=== PATIENT | male | born 1945 | race African-American/Black ===

== ENCOUNTER 2017-03-02 09:13 | Inpatient (IN) | payer OTHER ==
[2017-03-02 10:44] LABS: #Lymphocytes 1.2 thou/uL (1.20-3.40); #Monocytes 0.5 thou/uL (0.11-0.59); #Neutrophils 12.4 thou/uL (1.40-6.50); %Basophils 0.1 % (0.0-1.0); %Eosinophils 0.2 % (0.0-10.0); %Lymphocytes 8.6 % (21.0-51.0); %Monocytes 3.7 % (0.0-10.0); Hematocrit 49.4 % (42.0-52.0); Red Blood Cell (RBC) Count 4.98 mill/uL (4.70-6.10); White Blood Cell (WBC) Count 14.2 thou/uL (4.8-10.8)
--- NOTE | 2017-03-02 11:01 | CT ---
CT OF THE BRAIN WITHOUT CONTRAST: COMPARISON: None. HISTORY: Found down with facial drooping. Nonverbal. Stroke. TECHNIQUE: Multiple contiguous axial images were obtained in a CT of the brain without contrast. FINDINGS: There are scattered hypodensities in the subcortical and periventricular white matter, likely second avery to small-vessel ischemic disease. No large confluent infarction is seen. There is no evidence of hydrocephalus, intracranial hemorrhage, or extraaxial fluid collection. The calvarium and overlying soft tissues are unremarkable. The visualized paranasal sinuses and mas toid air cells are well aerated. IMPRESSION: No evidence of acute intracranial abnormality. POS: [facility]
[2017-03-02 11:07] LABS: ALT (SGPT) 46 U/L (8-55); AST (SGOT) 32 U/L (5-34); Alkaline Phosphatase 243 U/L (40-150); Anion Gap 16 mmol/L (10-20); BUN (Urea Nitrogen) 19 mg/dL (8.4-25.7); Bilirubin, Total 0.6 mg/dL (0.2-1.2); Calc. Creatinine Clearance 0 mL/min (70-130); Carbon Dioxide 22 mmol/L (23-31); Chloride 104 mmol/L (98-107); Estimated GFR-MDRD 85; Globulin 4.1 g/dL (2.4-3.5); Protein, Total 8.4 g/dL (5.8-8.1)
[2017-03-02 11:26] LABS: Troponin I 0.031 ng/mL (< 0.028)
--- NOTE | 2017-03-02 11:32 | HP ---
PRIMARY CARE PHYSICIAN: Not listed. The patient [place] an [facility] and is a city call patient. CHIEF COMPLAINT: Left-sided weakness and fall. HISTORY OF PRESENT ILLNESS: Mr. Parnell is a 71-year-old gentleman with history of HIV, apparently u nder good control, paranoid schizophrenia, GERD, and hyperlipidemia, who this morning states he was getting up to go to the bathroom in the medical [facility] where he resides at the senior living and felt lighthe aded and passed out. He fell and hit his head and when he came to only knows that he had difficulty moving his left arm and leg. Per reports, he was found down at 0745. The part of the facility that he is in has 6 total inmates. No one believed that he was down for any prolonged period of time prior to being found. On arrival here, he continued to have left-sided weakness and left-sided facial droop. Initial CT s can reportedly was unremarkable. Labs were obtained. We were called for admission for further work up. PAST MEDICAL HISTORY: 1. HIV diagnosed in 1984. He is currently on Prezista, boosted and Truvada. He has been on this r egimen at the present time and only knows that his numbers are \\\\"good.\\\\" 2. Schizophrenia, paranoid type, on Risperdal and amantadine. 3. GERD. 4. Hyperlipidemia. PAST SURGICAL HISTORY: None. He does have an inguinal hernia that has not been repaired. HOME MEDICATIONS: 1. Amantadine 100 mg p.o. b.i.d. 2. Atorvastatin 20 mg p.o. at bedtime. 3. Benadryl 25 mg p.o. b.i.d. 4. Gemfibrozil 600 mg p.o. b.i.d. 5. Norvir 100 mg daily. 6. Prezista 800 mg daily. 7. Ranitidine 300 mg p.o. daily. 8. Viread 300 mg daily. 9. Pyridoxine 50 mg daily. 10. Risperdal 1 mg p.o. at bedtime. 11. Zoloft 50 mg p.o. at bedtime. ALLERGIES: NKDA. FAMILY HISTORY: Negative for clotting bleeding disorder, no immune dysfunction, no premature gavin ry disease, no diabetes. SOCIAL HISTORY: Negative for habits x3. He was diagnosed with HIV in 1984. He states he was incar cerated then. He is not sure how long he has been in at this point. REVIEW OF SYSTEMS: A 10-point review of systems was performed and was negative for all other system s except as stated per HPI. PHYSICAL EXAMINATION: VITAL SIGNS: Temperature is 98.5, current pulse 96, blood pressure 123/84, respiratory rate 18, sat ting 100% on room air. GENERAL: He is awake. He is alert. He is oriented x3, appears to be in no acute distress. HEENT: Normocephalic, atraumatic. Pupils equal, round, reactive to light bilaterally. ENT: Mucous membranes moist. There are no visible lesions, no thrush. Does have left-sided facial droop. NECK: Supple, without lymphadenopathy, JVD, or thyromegaly. RESPIRATORY: Lungs are clear to auscultation bilaterally. He has good air movement and symmetrical chest excursion. He has no wheezes, no rales, no rhonchi. CARDIOVASCULAR: Normal S1, S2. No S3, S4. Slightly tachycardic with a regular rhythm. He has no murmurs. ABDOMEN: Soft, it is nontender, nondistended, no masses, no organomegaly. EXTREMITIES: No cyanosis, no clubbing, no edema. Muscle mass is adequate. MUSCULOSKELETAL: Normal to inspection. There are no inflamed or arthritic joints. He has no palpa ble joint effusions. SKIN: Warm, moist and well perfused. He has no rashes, no lesions. NEUROLOGIC: He does have left-sided facial droop. Cranial nerves II- and VIII-XII appear to be g rossly intact. He has what looks to be a peripheral seventh palsy. He has got left-sided facial dr oop, but his eyelid and his forehead appear to be spared. He has got 5/5 strength in his right leg and right arm extensor and flexor. He has 3/5 strength in his left arm and 3-4/5 strength in his le ft lower extremity in both his hip flexors and extensors and lower leg flexors and extensors. LABORATORY DATA: CBC showed a white count elevated at 14.2, hemoglobin 17.3, hematocrit of 49.4, pl atelet count is 257,000. He has 87% granulocytosis. CMP is currently pending. A brain CT earlier this morning that is reportedly negative. I cannot pull up images and no dictate d report at this time. ASSESSMENT AND PLAN: 1. Probable right MCA distribution ischemic stroke. We will get MRI/MRA. We will have carotid ult rasound and echocardiogram. Continue the patient on his statin, continue aspirin daily. We will ge t physical therapy, occupational therapy and speech therapy evaluations and neurology consultation a s well. 2. Human immunodeficiency virus positive, status unknown. We will check CD4 count and viral load. We will continue on his boosted Prezista and Truvada regimen as it is definitely an acceptable iain men. 3. Schizophrenia, on amantadine and risperidone. We will continue. 4. Reflux. We will continue him on gastrointestinal prophylaxis. We will use Pepcid here. 5. Hyperlipidemia, on atorvastatin. We will increase to 40 mg p.o. at bedtime. I will check a fas ting lipid profile in the morning. The patient will be placed in full admission status upon the stroke unit. Follow up on results and recommendations from Neurology.
[2017-03-02] MEDS ORDERED: Aspirin 300 MG Suppository ONE (11:44)
[2017-03-02] MEDS ORDERED: Ondansetron HCl/PF 4 MG/2 ML Vial IVP PRN (12:49)
[2017-03-02 13:25] VITALS: BMI 22.1
[2017-03-02] MEDS: Gemfibrozil 600 MG TAB PO SCH (16:34)
[2017-03-02] MEDS ORDERED: FLU VACC TS2017-18 (>65YR) 0.5 ML SYRINGE IM ONE (21:00)
[2017-03-02] MEDS: Famotidine/PF 20 mg/2ml Vial SLOW IVP SCH (21:43)
[2017-03-02] MEDS: Atorvastatin Calcium 40 MG TAB PO SCH (21:43)
[2017-03-02] MEDS: Amantadine HCl 100 mg Capsule PO SCH (21:44)
[2017-03-02] MEDS: risperiDONE 1 MG TAB PO SCH (21:44)
[2017-03-03 05:19] LABS: #Basophils 0.1 thou/uL (0.0-0.2); #Eosinphils 0.1 thou/uL (0.0-0.7); #Monocytes 0.7 thou/uL (0.11-0.59); #Neutrophils 7.5 thou/uL (1.40-6.50); %Basophils 0.5 % (0.0-1.0); %Eosinophils 0.7 % (0.0-10.0); %Lymphocytes 19.3 % (21.0-51.0); %Monocytes 6.4 % (0.0-10.0); Hematocrit 45.4 % (42.0-52.0); Mean Platelet Volume 6.2 fL (7.4-10.4); Red Blood Cell (RBC) Count 4.57 mill/uL (4.70-6.10); White Blood Cell (WBC) Count 10.2 thou/uL (4.8-10.8)
[2017-03-03 05:40] LABS: Anion Gap 13 mmol/L (10-20); BUN (Urea Nitrogen) 23 mg/dL (8.4-25.7); Calc. Creatinine Clearance 65 mL/min (70-130); Calcium 9.7 mg/dL (7.8-10.44); Carbon Dioxide 22 mmol/L (23-31); Chloride 106 mmol/L (98-107); Cholesterol 210 mg/dl (< 200 Desired); Estimated GFR-MDRD 87; LDL Cholesterol, Calculated 127 mg/dL
[2017-03-03] MEDS ORDERED: PREZISTA 800 MG PO SCH (09:00)
[2017-03-03] MEDS: Gemfibrozil 600 MG TAB PO SCH ×2 (12:21→17:08)
[2017-03-03] MEDS: Famotidine/PF 20 mg/2ml Vial SLOW IVP SCH ×2 (12:22→21:18)
[2017-03-03] MEDS: Aspirin 325 MG TAB PO SCH (12:22)
[2017-03-03] MEDS: Amantadine HCl 100 mg Capsule PO SCH ×2 (12:22→21:13)
[2017-03-03] MEDS ORDERED: ATAZANAVIR SULFATE 300 MG PO SCH (12:45)
--- NOTE | 2017-03-03 13:46 | MRI ---
MRI BRAIN: HISTORY: Found down with facial drooping. Nonverbal. TECHNIQUE: Multiplanar, multisequence MR images were obtained of the brain without contrast. FINDINGS: There is an area of restricted diffusion in the right basal ganglia measuring 1.6 cm in size. This is associated with high FLAIR signal and represents an acute infarction in the right basal ganglia. There are also scattered areas of restricted diffusion extending into the right parietal and occipi mona lobes consistent with multifocal infarctions in the right SOCK LINER distribution. There is no evidenc e of hydrocephalus, intracranial hemorrhage, or extraaxial fluid collection. There are scattered foci of high T2/FLAIR foci consistent with small-vessel ischemic disease. The c orpus callosum, pituitary, and craniocervical junction are unremarkable. The expected flow voids ar e present. IMPRESSION: Acute right basal ganglia and right SOCK LINER distribution infarction. POS: [facility]
--- NOTE | 2017-03-03 13:49 | MRI ---
MRA OF THE HEAD AND BRAIN WITHOUT CONTRAST: COMPARISON: None. HISTORY: Facial drooping and nonverbal. Possible right MCA distribution infarction. TECHNIQUE: MRA of the brain was performed without contrast using 3KD [id number] imaging. Three-D rotation reformats were performed. FINDINGS: The bilateral intracranial internal carotid arteries are patent. These branches are normal-appearin g anterior and middle cerebral arteries. There is no evidence of aneurysmal dilatation, focal steno sis, or occlusion in the anterior circulation. Both vertebral arteries form a normal-appearing basilar artery. The posterior cerebral arteries and cerebellar arteries are patent. There is no evidence of focal stenosis, occlusion, or aneurysmal d ilatation in the posterior circulation. IMPRESSION: No significant intracranial vascular abnormality. POS: [facility]
--- NOTE | 2017-03-03 13:57 | MRI ---
MRA OF THE NECK WITHOUT AND WITH CONTRAST: COMPARISON: None. HISTORY: Facial drooping with right-sided stroke. TECHNIQUE: An MRA was performed of the neck without and with IV contrast. Three-D rotational reformats were pe rformed. FINDINGS: Both common carotid arteries have a normal origin from the aortic arch. No significant irregularity is seen in the common carotid artery to suggest atherosclerotic disease. There is irregularity dis mona to the carotid bifurcation within the proximal aspect of both external carotid arteries. The in ternal carotid arteries show no irregularity to suggest significant atherosclerotic disease. Both vertebral arteries are normal in appearance and form a normal-appearing basilar artery. IMPRESSION: No significant cervical carotid atherosclerotic disease. POS: [facility]
--- NOTE | 2017-03-03 14:59 | PDOC.PN ---
- Subjective Encounter Start Date: 03/03/17 Encounter Start Time: 12:30 Pt seen and examined. no change neurologically overnight. Left droop and left body weakness persists. Echo and MRI done. MRI results as i type this, wasnt available during rounds. No F/C, no n/V/D/C, no CP or SOB. no seizure activity. Pts on HIV meds, but Darunavir not available, will change to Atazanavir temporarily 10 point ROS performed and neg for all systems except as per HPI - Objective Resuscitation Status: FULL MAR Reviewed: Yes Vital Signs & Weight: Vital Signs (12 hours) Temp Pulse Resp BP Pulse Ox 03/03/17 12:30 98.5 F 115 H 18 154/91 H 98 03/03/17 08:00 98.0 F 96 18 98 03/03/17 07:05 98.0 F 96 18 130/71 95 03/03/17 04:29 98.5 F 110 H 16 132/74 97 03/03/17 03:03 97 Weight Weight 149 lb 14.629 oz I&O: 03/02/17 03/03/17 03/04/17 06:59 06:59 06:59 Intake Total 613 Output Total 450 Balance 163 Result Diagrams: 03/03/17 05:02 03/03/17 05:02 Radiology Reviewed by me: Yes EKG Reviewed by me: Yes Phys Exam - Physical Examination Constitutional: NAD HEENT: PERRLA, moist MMs, sclera anicteric, oral pharynx no lesions Neck: no nodes, no JVD, supple, full ROM Respiratory: no wheezing, no rales, no rhonchi, clear to auscultation bilateral Cardiovascular: RRR, no significant murmur, no rub Gastrointestinal: soft, non-tender, no distention, positive bowel sounds Musculoskeletal: no edema, pulses present Neurological: normal sensation, moves all 4 limbs left facial droop stable. 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 continue lipitor at higher dose. contiue ASA full dose. PT/OT/ST nehemias ontinue. await neurology recommendations. Will change darunavit to BRAXTON for now. look into rehab if posible. pt may need to get at the nursing home. will discuss in AM with case management
--- NOTE | 2017-03-03 17:29 | CON ---
DATE OF CONSULTATION: 03/03/2017 CONSULTING PHYSICIAN: Hospitalist Service. IMPRESSION: 1. Lacunar infarction with left hemiparesis of a moderate degree. 2. Mild hypertension. 3. Diabetes. 4. Hyperlipidemia. PLAN: 1. Aspirin. 2. Statin titrated to address cholesterol issues. 3. Investigate rehab options. Mr. Parnell is a 71-year-old man, who is an inmate in the [facility] unit. He presented with acute onset of left-sided weakness. His MRI of the brain reveals a right basal ganglia infarct. MRA of the ca rotid vessels did not show any stenosis. He has no past history of stroke. He was not taking any m edications for any medical problems prior to this admission. He denies a cardiac history as well. PAST MEDICAL HISTORY: Otherwise unknown. ALLERGIES: None reported. SOCIAL HISTORY: No tobacco or illicit drug use. FAMILY HISTORY: Noncontributory. REVIEW OF SYSTEMS: No complaint of headache, nausea, vomiting, vertigo, double vision, or difficult y swallowing. PHYSICAL EXAMINATION: GENERAL: He is a reasonably well-nourished, elderly gentleman, lying in bed, in no distress. VITAL SIGNS: Stable. He is afebrile. HEENT: Pupils equal and reactive. Conjunctivae clear. Oropharynx clear. NECK: No lymphadenopathy noted. EXTREMITIES: No cyanosis noted. NEUROLOGIC EXAM: He is alert and cooperative. His speech is fluent and clear. There is a left fac ial flattening present. Palate elevated to the midline. Motor exam shows some 3+/5 strength in the left arm. Same is fairly true for the left leg as well. Sensation was subjectively intact bilater ally. Gait was not testable. No abnormal movements were seen. IMAGING STUDIES: Reviewed. SUMMARY: This is a 71-year-old man with what appears to be some mild hypertension, hyperlipidemia, and human immunodeficiency virus, who presented with lacunar infarction. He will need to be started on aspirin and a statin to address these 2 factors. He could be transferred to a rehab unit if we can find one available under these circumstances.
[2017-03-03] MEDS: risperiDONE 1 MG TAB PO SCH (21:13)
[2017-03-03] MEDS: Atorvastatin Calcium 40 MG TAB PO SCH (21:13)
[2017-03-04 04:37] LABS: #Lymphocytes 1.2 thou/uL (1.20-3.40); #Monocytes 0.6 thou/uL (0.11-0.59); #Neutrophils 10.9 thou/uL (1.40-6.50); %Basophils 0.3 % (0.0-1.0); %Eosinophils 0.1 % (0.0-10.0); %Lymphocytes 9.4 % (21.0-51.0); %Monocytes 4.7 % (0.0-10.0); Hematocrit 50.7 % (42.0-52.0); Red Blood Cell (RBC) Count 5.08 mill/uL (4.70-6.10); White Blood Cell (WBC) Count 12.7 thou/uL (4.8-10.8)
[2017-03-04 04:38] LABS: Hemoglobin A1c 6.9 % (4.0-6.0)
[2017-03-04 04:57] LABS: Anion Gap 17 mmol/L (10-20); BUN (Urea Nitrogen) 28 mg/dL (8.4-25.7); Calc. Creatinine Clearance 69 mL/min (70-130); Calcium 9.9 mg/dL (7.8-10.44); Carbon Dioxide 19 mmol/L (23-31); Chloride 106 mmol/L (98-107); Estimated GFR-MDRD 87
[2017-03-04] MEDS ORDERED: PREZISTA 800 MG PO SCH (09:00)
[2017-03-04] MEDS: Aspirin 325 MG TAB PO SCH (09:52)
[2017-03-04] MEDS: Gemfibrozil 600 MG TAB PO SCH ×2 (09:52→16:11)
[2017-03-04] MEDS: ATAZANAVIR SULFATE 300 MG PO SCH (09:52)
[2017-03-04] MEDS: Amantadine HCl 100 mg Capsule PO SCH ×2 (09:52→20:23)
[2017-03-04] MEDS: Famotidine/PF 20 mg/2ml Vial SLOW IVP SCH ×2 (09:53→20:23)
--- NOTE | 2017-03-04 14:16 | PDOC.PN ---
- Subjective Encounter Start Date: 03/04/17 Encounter Start Time: 09:55 -: non-verbal pt doing abut the same. nodding and shaking appropriately, but not talking today. developed sinus tach sometime yesterday AM andhas persistently been in 110-120s denies pain, no CP, no leg pain. SCDs in place. one dip on O2, but has been on 95-96% on RA most of the last 48 hours. no F/c, no N/V/D/C. Pt sleeping at the time of this note soundly 10 point ROS performed and neg for all systems except as above - Objective Resuscitation Status: FULL MAR Reviewed: Yes Vital Signs & Weight: Vital Signs (12 hours) Temp Pulse Pulse Pulse Resp BP BP 03/04/17 11:59 98.0 F 122 H 22 H 03/04/17 09:16 125 H 112 H 167/94 H 131/90 03/04/17 08:30 117 H 03/04/17 08:00 98.4 F 124 H 20 03/04/17 05:04 03/04/17 03:04 98.4 F 118 H 20 BP Pulse Ox 03/04/17 11:59 138/92 H 95 03/04/17 09:16 03/04/17 08:30 03/04/17 08:00 134/86 96 03/04/17 05:04 95 03/04/17 03:04 137/92 H 95 Weight Weight 159 lb 6.4 oz I&O: 03/03/17 03/04/17 03/05/17 06:59 06:59 06:59 Intake Total 613 555 750 Output Total 450 400 Balance 163 155 750 Result Diagrams: 03/04/17 04:17 03/04/17 04:17 Radiology Reviewed by me: Yes EKG Reviewed by me: Yes Phys Exam - Physical Examination Constitutional: NAD HEENT: PERRLA, moist MMs, sclera anicteric, oral pharynx no lesions Neck: no nodes, no JVD, supple, full ROM Respiratory: no wheezing, no rales, no rhonchi, clear to auscultation bilateral Cardiovascular: no significant murmur, no rub regular, tachy Gastrointestinal: soft, non-tender, no distention, positive bowel sounds Musculoskeletal: no edema, pulses present left 3/5 strength, right 4.5 UEand LE. 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 Code(s): I63.531 - CEREB INFRC D/T UNSP OCCLS OR STENOS OF RIGHT POST CEREB ART Status: Acute (3) HIV (human immunodeficiency virus infection) Status: Chronic Comment: On boosted Atazanavir (in palce of boosted Prezista) plus truvada (4) Paranoid schizophrenia Code(s): F20.0 - PARANOID SCHIZOPHRENIA Status: Chronic Comment: on HS risperdal per home regimen (5) HLD (hyperlipidemia) Code(s): E78.5 - HYPERLIPIDEMIA, UNSPECIFIED Status: Acute Qualifiers: Hyperlipidemia type: unspecified Qualified Code(s): E78.5 - Hyperlipidemia , unspecified - Plan cont current plan of care, PT/OT, medical social worker * .
[2017-03-04] MEDS ORDERED: Iopamidol 370 76% 100 ML VIAL ONE (15:45)
--- NOTE | 2017-03-04 19:15 | CT ---
CT PULMONARY ANGIOGRAM WITH IV CONTRAST AND 3D POSTPROCESSING: Date: 03/04/17 HISTORY: Acute onset of tachycardia and tachypnea. FINDINGS: No filling defects are seen in the well opacified pulmonary arterial vasculature to suggest pulmonar y embolism. The thoracic aorta is well opacified without aneurysm or dissection. No pleural or peric ardial effusions are seen. Bullous changes are seen in the lower lung marte. There is a 1.0 cm nodu le in the right posterior lung base. A 1.0 cm nodule is also seen in the superior segment of the lef t lower lobe. There are degenerative changes in the spine. IMPRESSION: 1. No CT evidence of pulmonary embolism. 2. Indeterminate lung nodules in the lower lobes. Further evaluation with PET scan would be helpful . CODE T. POS: [facility]
[2017-03-04] MEDS: risperiDONE 1 MG TAB PO SCH (20:22)
[2017-03-04] MEDS: Atorvastatin Calcium 40 MG TAB PO SCH (20:23)
[2017-03-05 05:27] LABS: Anion Gap 19 mmol/L (10-20); BUN (Urea Nitrogen) 35 mg/dL (8.4-25.7); Calc. Creatinine Clearance 61 mL/min (70-130); Calcium 9.7 mg/dL (7.8-10.44); Carbon Dioxide 18 mmol/L (23-31); Chloride 101 mmol/L (98-107); Estimated GFR-MDRD 76
[2017-03-05 06:04] LABS: Hematocrit 49.5 % (42.0-52.0); Mean Platelet Volume 6.5 fL (7.4-10.4); Neutrophil 82 % (42-75); Red Blood Cell (RBC) Count 4.96 mill/uL (4.70-6.10); White Blood Cell (WBC) Count 13.5 thou/uL (4.8-10.8)
[2017-03-05] MEDS: ATAZANAVIR SULFATE 300 MG PO SCH (09:20)
[2017-03-05] MEDS: Aspirin 325 MG TAB PO SCH (09:21)
[2017-03-05] MEDS: Amantadine HCl 100 mg Capsule PO SCH ×2 (09:21→20:25)
[2017-03-05] MEDS: Gemfibrozil 600 MG TAB PO SCH ×2 (09:22→16:56)
[2017-03-05] MEDS: Famotidine/PF 20 mg/2ml Vial SLOW IVP SCH ×2 (09:22→20:27)
--- NOTE | 2017-03-05 12:01 | PDOC.PN ---
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 Currently on ASA, Lipitor -: and Gemfibrozil. Tele showing sinus tach in 110-120's. CTA chest neg. - Objective MAR Reviewed: Yes Vital Signs & Weight: Vital Signs (12 hours) Temp Pulse Resp BP Pulse Ox 03/05/17 11:02 98.6 F 117 H 22 H 145/81 H 94 L 03/05/17 08:00 98.6 F 122 H 22 H 133/90 95 03/05/17 03:41 96 03/05/17 03:37 97.4 F L 120 H 20 114/74 96 Weight Weight 156 lb 12.8 oz I&O: 03/04/17 03/05/17 03/06/17 06:59 06:59 06:59 Intake Total 555 1603 Output Total 400 Balance 155 1603 Result Diagrams: 03/05/17 04:34 03/05/17 04:34 Additional Labs: Laboratory Tests 03/02/17 03/02/17 03/03/17 10:34 10:34 05:02 WBC 14.2 H Creatinine 1.05 1.03 Hemoglobin A1c Triglycerides 164 H Cholesterol 210 H LDL Cholesterol, Calc 127 HDL Cholesterol 50 03/03/17 03/04/17 03/04/17 05:02 04:17 04:17 WBC 10.2 Creatinine 1.03 Hemoglobin A1c 6.9 H Triglycerides Cholesterol LDL Cholesterol, Calc HDL Cholesterol 03/04/17 04:17 WBC 12.7 H Creatinine Hemoglobin A1c Triglycerides Cholesterol LDL Cholesterol, Calc HDL Cholesterol Radiology Reviewed by me: Yes (CTA chest - no acute PE) EKG Reviewed by me: Yes (Tele - sinus tach in 115's) Phys Exam - Physical Examination Constitutional: NAD HEENT: PERRLA, oral pharynx no lesions Neck: no JVD, supple Respiratory: no wheezing tachycardic Gastrointestinal: soft, non-tender, no distention, positive bowel sounds Musculoskeletal: no edema, pulses present LUE 3/5, RUE 5/5 Neurological: normal sensation, moves all 4 limbs Psychiatric: A&O x 3 Skin: normal turgor, cap refill <2 seconds Dx/Plan (1) Sinus tachycardia Code(s): R00.0 - TACHYCARDIA, UNSPECIFIED Status: Acute Comment: ? etiology , check EKG today, start Metoprolol 12.5mg BID, Echo with EF 55-60% with diast dysfunction. 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 Code(s): I63.531 - CEREB INFRC D/T UNSP OCCLS OR STENOS OF RIGHT POST CEREB ART Status: Acute Comment: Continue ASA, Lipitor, plan for Rehab on d/c (4) HLD (hyperlipidemia) Code(s): E78.5 - HYPERLIPIDEMIA, UNSPECIFIED Status: Chronic Qualifiers: Hyperlipidemia type: unspecified Qualified Code(s): E78.5 - Hyperlipidemia , unspecified Comment: Lipitor 40mg HS (5) HIV (human immunodeficiency virus infection) Status: Chronic Comment: On boosted Atazanavir (in palce of boosted Prezista) plus truvada (6) Paranoid schizophrenia Code(s): F20.0 - PARANOID SCHIZOPHRENIA Status: Chronic Comment: on HS risperdal per home regimen - Plan PT/OT, social work supervisor, out of bed/ambulate, DVT proph w/SCDs Stable currently -: Start Metformin and Glipizide for new DM -: Start Metoprolol 12.5mg BID -: EKG today -: Continue ASA, Lipitor and Lopid * AM lab: BMP, TSH, Mg++ * Plan for PT/OT through shelter system on d/c * ? D/c in 24-48h
[2017-03-05] MEDS ORDERED: Metoprolol Tartrate 25 MG TAB PO SCH (12:30)
[2017-03-05] MEDS: metFORMIN 500 MG TAB PO SCH (15:11)
[2017-03-05] MEDS: glipiZIDE 5 MG TAB PO SCH (16:56)
[2017-03-05] MEDS: Atorvastatin Calcium 40 MG TAB PO SCH (20:25)
[2017-03-05] MEDS: risperiDONE 1 MG TAB PO SCH (20:26)
[2017-03-05] MEDS: Metoprolol Tartrate 25 MG TAB PO SCH (20:26)
[2017-03-06 05:34] LABS: Anion Gap 14 mmol/L (10-20); BUN (Urea Nitrogen) 39 mg/dL (8.4-25.7); Calc. Creatinine Clearance 74 mL/min (70-130); Calcium 9.4 mg/dL (7.8-10.44); Carbon Dioxide 22 mmol/L (23-31); Chloride 102 mmol/L (98-107); Estimated GFR-MDRD Greater than 90; Magnesium 2.5 mg/dL (1.6-2.6)
[2017-03-06] MEDS: glipiZIDE 5 MG TAB PO SCH ×2 (13:11→14:55)
[2017-03-06] MEDS: Gemfibrozil 600 MG TAB PO SCH ×2 (13:11→14:55)
[2017-03-06] MEDS: Aspirin 325 MG TAB PO SCH (13:12)
[2017-03-06] MEDS: Metoprolol Tartrate 25 MG TAB PO SCH (13:12)
[2017-03-06] MEDS: Amantadine HCl 100 mg Capsule PO SCH (13:12)
[2017-03-06] MEDS: Famotidine/PF 20 mg/2ml Vial SLOW IVP SCH (13:12)
[2017-03-06] MEDS: metFORMIN 500 MG TAB PO SCH ×2 (13:12→14:55)
[2017-03-06] MEDS: ATAZANAVIR SULFATE 300 MG PO SCH (13:12)
--- NOTE | 2017-03-06 13:37 | DIS ---
DATE OF ADMISSION: 03/02/2017 DATE OF DISCHARGE: 03/06/2017 DISCHARGE DIAGNOSES: 1. Acute right basal ganglia/right posterior communicating artery distribution cerebrovascular accid ent. 2. Left hemiparesis secondary to #1. 3. Diabetes mellitus type 2, new diagnosis. 4. Human immunodeficiency virus with current antiretroviral therapy. 5. Schizophrenia, paranoid type. 6. Sinus tachycardia, improved. 7. Hypertension, stable. 8. Hyperlipidemia. 9. Gastroesophageal reflux. 10. Depression. CONSULTATIONS: Dr. Garcia with Neurology Service. PERTINENT LABORATORY AND X-RAY FINDINGS: CT of the brain without contrast showed no acute intracrani al process dated 03/02/2017. MRI of the brain dated 03/03/2017 showed acute right basal ganglia and right SAFETY PIN ASSEMBLING MACHINE OPERATOR distribution cerebrovascular accident. Chronic ischemic white matter changes noted. MRA o f the head and neck dated 03/03/2017 showed no focal stenosis or aneurysm. CT angiogram of the chest dated 03/05/2017 showed no evidence for pulmonary embolus. CBC dated 03/05/2017 within normal limit s. Basic metabolic profile dated 03/05/2017 within normal limits. HOSPITAL COURSE: Patient was admitted to the stroke unit after initially presenting with left facial asymmetry and left hemiparesis, undergoing extensive neuro imaging with confirmation of right basal ganglia and right SAFETY PIN ASSEMBLING MACHINE OPERATOR distribution acute CVA. The patient was placed on aspirin 325 mg daily in abilio tion to Lipitor 20 mg p.o. at bedtime. The patient underwent general stroke protocol including evalu ation by the Neurology Service with recommendations for medical management and risk factor medication with tighter antihypertensive regimen. The patient was also noted with hyperglycemia with new diagn osis of diabetes mellitus type 2 initiated on dual therapy with metformin and glipizide. Patient michelle l need additional titration of his glucose regimen on an ongoing basis after discharge. The patient was also noted with sinus tachycardia persistent for approximately 3 days, requiring metoprolol 12.5 mg b.i.d. with overall improvement and stabilization of heart rate. The patient was continued on his regular atrial antiretroviral therapy for chronic HIV and remained clinically stable. Overall, jacklyn ent remained clinically stable currently tolerating limited oral intake, voiding appropriately and re warner for discharge on 03/06/2017. DISCHARGE MEDICATIONS: 1. Amantadine 100 mg 1 tab p.o. b.i.d. 2. Lipitor 20 mg one tablet p.o. daily. 3. Enteric coated aspirin 325 mg 1 tab p.o. daily. 4. Prezista 800 mg p.o. q.a.m. 5. Gemfibrozil 600 mg p.o. b.i.d. 6. Lamivudine 300 mg p.o. daily. 7. Omeprazole 20 mg 1 tab p.o. daily. 8. Pyridoxine 50 mg p.o. daily. 9. Ranitidine 300 mg p.o. daily. 10. Risperdal 1 mg p.o. at bedtime. 11. Norvir 100 mg p.o. daily. 12. Zoloft 50 mg 1 tab p.o. daily. 13. Viread 300 mg p.o. daily. 14. Glipizide 5 mg p.o. b.i.d. 15. Metformin 500 mg p.o. b.i.d. FOLLOWUP: Patient will follow up with the [facility] facility for acute inpatie nt rehabilitation. DIET: Heart healthy and ADA. CODE STATUS: Full. DISPOSITION: Discharged to the [facility] inpatient rehabilitation on 7. Total time preparing and coordinating discharge is 34 minutes.
[2017-03-06 15:39] VITALS: BP 122/78; TEMP 97.6
--- NOTE | 2017-03-07 07:47 | EKG ---
Test Reason : Blood Pressure : / mmHG Vent. Rate : 119 BPM Atrial Rate : 119 BPM P-R Int : 130 ms QRS Dur : 074 ms QT Int : 350 ms P-R-T Axes : 058 -28 116 degrees QTc Int : 492 ms Sinus tachycardia Inferior infarct , age undetermined Abnormal ECG When compared with ECG of 02-MAR-2017 09:21, (Unconfirmed) Inferior infarct is now Present T wave inversion no longer evident in Anterior leads Inverted T waves have replaced nonspecific T wave abnormality in Lateral leads Confirmed by ROB AGOSTO, DR. Marques ([id number]) on 03/07/2017 7:47:09 AM Referred By: MUSA Confirmed By:DR. Shelli RIVAS MD
--- NOTE | 2017-03-30 12:18 | EKG ---
Test Reason : Blood Pressure : / mmHG Vent. Rate : 092 BPM Atrial Rate : 092 BPM P-R Int : 146 ms QRS Dur : 080 ms QT Int : 344 ms P-R-T Axes : 049 -25 064 degrees QTc Int : 425 ms Normal sinus rhythm T wave abnormality, consider lateral ischemia ST elevation V2 Abnormal ECG Confirmed by GINA AGOSTO, OG Scott ([id number]), commissioning editor BRIAN BARRIOS ([id number]) on 03/30/2017 12:18:39 PM Referred By: Confirmed By:OG FUENTES MD
== END 2017-03-06 16:35 | DRG 64 ==
LOC: ERS 09:13 → 2SE 13:06
PROVIDERS: ADMIT Internal Medicine Infectious Disease; ATTEND Internal Medicine Infectious Disease
DX: I63.531 Cerebral infarction due to unspecified occlusion or stenosis of right posterior cerebral artery (principal); B20 Human immunodeficiency virus [HIV] disease; I63.511 Cerebral infarction due to unspecified occlusion or stenosis of right middle cerebral artery; G81.94 Hemiplegia, unspecified affecting left nondominant side; F20.0 Paranoid schizophrenia; I10 Essential (primary) hypertension; K21.9 Gastro-esophageal reflux disease without esophagitis; E78.5 Hyperlipidemia, unspecified; R29.810 Facial weakness; R00.0 Tachycardia, unspecified; F32.9 Major depressive disorder, single episode, unspecified; E11.65 Type 2 diabetes mellitus with hyperglycemia
CPT/HCPCS: 36415; 36416; 70450; 70544; 70548; 70551; 71275; 80048; 80053; 80061; 82553; 83036; 83735; 84443; 84484; 85025; 93005; 93010; 93306; G8978-GP-CM; G8979-GP-CL; G8987-GO-CL; G8988-GO-CJ; G8996-GN-CH; G8997-GN-CH; S0028